=== PATIENT | female | born 1940 | race Caucasian/White ===

== ENCOUNTER 2024-08-28 11:30 | Inpatient (IN) | payer MEDICARE ==
[2024-08-28] MEDS ORDERED: Sodium Chloride 0.9% 10 ML Syringe FLUSH PRN (11:33)
[2024-08-28 11:59] LABS: BASOPHILS ABSOLUTE AUTO 0.01 K/uL (0.00-0.20); BASOPHILS PERCENT AUTO 0.1 % (0.0-2.0); EOSINOPHILS ABSOLUTE AUTO 0.01 K/uL (0.00-0.50); EOSINOPHILS PERCENT AUTO 0.1 % (0.0-5.0); HEMATOCRIT 37.2 % (34.0-46.0); HEMOGLOBIN 11.5 g/dL (11.7-15.5); IMMATURE GRAN ABSOLUTE AUTO 0.04 10^3/uL (0.00-0.04); IMMATURE GRAN PERCENT AUTO 0.3 % (0.0-0.4); LYMPHOCYTES ABSOLUTE AUTO 0.79 K/uL (0.50-3.50); LYMPHOCYTES PERCENT AUTO 5.8 % (10.0-50.0); MEAN CORPUSCULAR HEMOGLOBIN 25.1 pg (28.2-33.3); MEAN CORPUSCULAR HGB CONC 30.9 g/dL (31.7-36.0); MONOCYTES ABSOLUTE AUTO 0.69 K/uL (0.00-1.00); MONOCYTES PERCENT AUTO 5.1 % (2.0-14.0); NEUTROPHILS ABSOLUTE AUTO 12.02 K/uL (1.40-7.00); NEUTROPHILS PERCENT AUTO 88.6 % (45.0-80.0); PLATELET COUNT,PLT 342 K/uL (150-350); RED BLOOD CELL COUNT 4.59 M/uL (3.77-5.09); WHITE BLOOD CELL COUNT,WBC 13.6 K/uL (4.0-10.2)
[2024-08-28] MEDS: Sodium Chloride 0.9% 1,000 ML IV ONE ×2 (12:04→14:26)
[2024-08-28] MEDS: Acetaminophen 325 MG Tab PO ONE (12:06)
[2024-08-28] MEDS: Ondansetron 4 MG/2 ML SDV IVPUSH ONE (12:06)
[2024-08-28 12:18] LABS: INR 1.1 (0.9-1.1); PROTHROMBIN TIME 10.7 SEC (9.0-11.1)
[2024-08-28 12:28] LABS: LACTIC ACID 2.6 mmol/L (0.4-2.0)
[2024-08-28 12:37] LABS: ALANINE AMINOTRANSFERASE,ALT 12 U/L (12-78); ALBUMIN 3.2 g/dL (3.4-5.0); ALKALINE PHOSPHATASE 96 IU/L (46-116); ASPARTATE AMNIOTRANSFERASE,AST 15 U/L (15-37); BILIRUBIN TOTAL 0.5 mg/dL (0.2-1.0); BLOOD UREA NITROGEN,BUN 16 mg/dL (7-18); CALCIUM 8.6 mg/dL (8.5-10.1); CHLORIDE,CL 101 mmol/L (98-107); CREATININE 1.13 mg/dL (0.51-1.17); GLUCOSE RANDOM 133 mg/dL (70-99); MAGNESIUM 1.9 mg/dL (1.8-2.4); PROTEIN TOTAL,TP 7.3 g/dL (6.4-8.2); SODIUM,NA 140 mmol/L (136-145)
[2024-08-28 12:41] LABS: ESTIMATED GFR 48 mL/min (>=60)
[2024-08-28] MEDS ORDERED: Acetaminophen 325 MG Tab PO PRN (13:50)
[2024-08-28] MEDS ORDERED: Ondansetron 4 MG/2 ML SDV IVPUSH PRN (13:50)
[2024-08-28] MEDS ORDERED: Nitroglycerin 0.4 MG Tab.SL SL PRN (18:45)
[2024-08-28 19:07] LABS: APPEARANCE,URINE SLIGHTLY CLOUDY; BILIRUBIN,URINE NEGATIVE (NEGATIVE); COLOR,URINE YELLOW; GLUCOSE,URINE NEGATIVE (NEGATIVE); KETONES,URINE NEGATIVE (NEGATIVE); LEUKOCYTE ESTERASE,URINE NEGATIVE (NEGATIVE); NITRITE,URINE POSITIVE (NEGATIVE); OCCULT BLOOD,URINE TRACE-LYSED (NEGATIVE); PH,URINE 5.5 (5.0-9.0); PROTEIN,URINE NEGATIVE (NEGATIVE); UROBILINOGEN,URINE 0.2 E.U./dL (0.2-1.0)
[2024-08-28 19:20] LABS: RBC,URINE 0-5 /HPF
[2024-08-28 19:21] LABS: AMORPHOUS SEDIMENT,URINE FEW /HPF (0/HPF); BACTERIA,URINE MANY /HPF (NONE TO FEW); EPITHELIAL CELLS,URINE NOT SEEN /LPF; MUCUS,URINE NOT SEEN /LPF (NEGATIVE); WBC,URINE NOT SEEN /HPF
[2024-08-29] MEDS: Pantoprazole 20 MG Tab, Delayed Release PO SCH (00:18)
[2024-08-29] MEDS: Enoxaparin 40 MG/0.4 ML Syringe SUBCUT SCH (08:20)
[2024-08-29] MEDS: Levothyroxine 75 MCG Tab PO SCH (08:20)
[2024-08-29] MEDS: DULoxetine 30 MG Cap PO SCH (08:20)
[2024-08-29] MEDS: Aspirin 81 MG Tab.EC PO SCH (08:20)
[2024-08-29] MEDS: Memantine 10 MG Tab PO SCH (08:20)
[2024-08-29] MEDS: Acetaminophen 650 MG Tab.ER PO SCH (08:20)
[2024-08-29] MEDS: Sennosides/Docusate Sodium 50-8.6 MG Tab PO SCH (08:21)
[2024-08-29 08:24] LABS: BASOPHILS ABSOLUTE AUTO 0.02 K/uL (0.00-0.20); BASOPHILS PERCENT AUTO 0.1 % (0.0-2.0); EOSINOPHILS ABSOLUTE AUTO 0.04 K/uL (0.00-0.50); EOSINOPHILS PERCENT AUTO 0.3 % (0.0-5.0); HEMATOCRIT 36.5 % (34.0-46.0); HEMOGLOBIN 10.9 g/dL (11.7-15.5); IMMATURE GRAN ABSOLUTE AUTO 0.04 10^3/uL (0.00-0.04); IMMATURE GRAN PERCENT AUTO 0.3 % (0.0-0.4); LYMPHOCYTES ABSOLUTE AUTO 2.44 K/uL (0.50-3.50); MEAN CORPUSCULAR HEMOGLOBIN 24.9 pg (28.2-33.3); MEAN CORPUSCULAR HGB CONC 29.9 g/dL (31.7-36.0); MEAN CORPUSCULAR VOLUME 83.5 fL (84.0-98.0); MONOCYTES ABSOLUTE AUTO 1.01 K/uL (0.00-1.00); MONOCYTES PERCENT AUTO 7.4 % (2.0-14.0); NEUTROPHILS ABSOLUTE AUTO 10.04 K/uL (1.40-7.00); NEUTROPHILS PERCENT AUTO 73.9 % (45.0-80.0); PLATELET COUNT,PLT 361 K/uL (150-350); RED BLOOD CELL COUNT 4.37 M/uL (3.77-5.09); RED CELL DISTRIBUTION WIDTH 17.5 % (11.2-14.1); WHITE BLOOD CELL COUNT,WBC 13.6 K/uL (4.0-10.2)
[2024-08-29 08:52] LABS: ANION GAP 6.9 meq/L (7-15); CALCIUM 8.2 mg/dL (8.5-10.1); CARBON DIOXIDE,CO2 30.1 mmol/L (21.0-32.0); CREATININE 1.05 mg/dL (0.51-1.17); EST CRCL DRUG DOSING (CG) 32.11 mL/min; POTASSIUM,K 3.7 mmol/L (3.5-5.1)
[2024-08-29] MEDS: Metoprolol Succinate 50 MG Tab.ER PO SCH (11:26)
== END 2024-08-29 14:35 | disposition home or self-care (01) | DRG 641 ==
LOC: LL.ED 11:30 → MERGE 13:46 → LL.MS 13:46
PROVIDERS: ADMIT Emergency Medicine; ATTEND Emergency Medicine
DX: R11.10 Vomiting, unspecified (principal); R19.7 Diarrhea, unspecified; R41.0 Disorientation, unspecified; E86.0 Dehydration; F05 Delirium due to known physiological condition; Z68.41 Body mass index [BMI] 40.0-44.9, adult; A08.4 Viral intestinal infection, unspecified; I10 Essential (primary) hypertension; Z91.018 Allergy to other foods; K21.9 Gastro-esophageal reflux disease without esophagitis; Z88.8 Allergy status to other drugs, medicaments and biological substances; M19.90 Unspecified osteoarthritis, unspecified site; G30.9 Alzheimer's disease, unspecified; F02.80 Dementia in other diseases classified elsewhere, unspecified severity, without behavioral disturbance, psychotic disturbance, mood disturbance, and anxiety; E66.9 Obesity, unspecified; F32.A Depression, unspecified; E03.9 Hypothyroidism, unspecified; Z88.2 Allergy status to sulfonamides; Z88.6 Allergy status to analgesic agent; Z91.014 Allergy to mammalian meats; Z79.1 Long term (current) use of non-steroidal anti-inflammatories (NSAID); Z79.82 Long term (current) use of aspirin; Z79.899 Other long term (current) drug therapy
CPT/HCPCS: 36415; 70450; 71045; 74019; 80053; 83605; 83735; 84484; 85025; 85610; 87040 ×2; 87088 ×2; 93005; 96361; 96374; 99285; A9270; J2405; J7030; 51701; 80048; 81001; 87086; 87186; 99223; 99238; J1650